=== PATIENT | male | born 1985 | race Caucasian/White ===

== ENCOUNTER 2021-06-21 17:27 | Emergency (ER) | payer OTHER ==
[~2021-06-21] VITALS: Ht 182.9 cm; Wt 93.4 kg
[2021-06-21 17:35] VITALS: BP 117/71
[2021-06-21] MEDS ORDERED: ENOXAPARIN ** NOTE DOSE ** SYRINGE SQ ONE (18:30)
--- NOTE | 2021-06-21 18:30 | PHYS DOC ---
Past History Past Surgical History: No Surgical History Alcohol Use: Occasionally General Adult EDM: Chief Complaint: LOWEREXTREMITY INJURY HPI: HPI: ".. I had patrice come down hard on this Lt.. Calf on Thursday and will swollen up now I am getting a loose discoloration actually it feels better..." Patient is a 35 year old male who presents with above hx and complaints of crush injury to Rt. calf during a foot ball game on Thu. Area is less tender., but area of contusion larger and more discolored. Pt. normally healthy. Up-to-date with vaccinations. Normally follow-up [place]. No recent overseas assignments. No specific ill contacts. No history of depression. Right leg is very ecchymotic and swollen as compared to left. Distal pulses are equal. Capillary refill appears to be equal. No history of coagulopathy with him or family members. Review of Systems: Review of Systems: Constitutional: Denies fever or chills Eyes: Denies change in visual acuity HENT: Denies nasal congestion or sore throat Respiratory: Denies cough or shortness of breath Cardiovascular: Denies chest pain or edema GI: Denies abdominal pain, nausea, vomiting, bloody stools or diarrhea : Denies dysuria Musculoskeletal: Complains of contusion injury right calf on Thursday during a football game Integument: Denies rash Neurologic: Denies headache, focal weakness or sensory changes Endocrine: Denies polyuria or polydipsia Lymphatic: Denies swollen glands Psychiatric: Denies depression or anxiety Family History: Family History: Noncontributory to presentation. Current Medications: Current Meds: See nursing for home meds Allergies: Allergies: Allergies Coded Allergies Type Severity Reaction Last Updated Verified No Known Drug Allergies 06/21/21 No Physical Exam: PE: Constitutional: Well developed, well nourished, no acute distress, non-toxic appearance. [] HENT: Normocephalic, atraumatic, bilateral external ears normal, oropharynx moist, no oral exudates, nose normal. [] Eyes: PERRLA, EOMI, conjunctiva normal, no discharge. [] Neck: Normal range of motion, no tenderness, supple, no stridor. [] Cardiovascular:Heart rate regular rhythm, no murmur [] Lungs & Thorax: Bilateral breath sounds clear to auscultation [] Abdomen: Bowel sounds normal, soft, no tenderness, no masses, no pulsatile masses. [] Skin: Warm, dry, no erythema, no rash. [] Right calf ecchymosis Back: No tenderness, no CVA tenderness. [] Extremities: Right calf tenderness, no cyanosis, no clubbing, ROM intact, right calf edema. [] Neurologic: Alert and oriented X 3, normal motor function, normal sensory function, no focal deficits noted. [] DTRs +2 patella and ankle Achilles. No distal sensation loss Psychologic: Affect normal, judgement normal, mood normal. [] Current Patient Data: Vital Signs: Vital Signs Date Time Temp Pulse Resp B/P (MAP) Pulse Ox O2 Delivery O2 Flow Rate FiO2 06/21/21 17:35 98.2 74 20 117/71 (86) 97 Room Air EKG: EKG: [] Radiology/Procedures: Radiology/Procedures: [address] [address] IMAGING REPORT Signed PATIENT: CHRIS WEST ACCOUNT: [id number] : 1985 LOCATION: ER AGE: 35 SEX: M EXAM STATUS: REG ER ORD. PHYSICIAN: ALPHONSE RUBIO MD REASON: Foot ball injury wed PROCEDURE: TIBIA FIBULA RIGHT EXAMINATION: Right tibia and fibula radiograph. VIEWS: 2 COMPARISON: None INDICATION:35 years, Male, football injury. FINDINGS: No acute fracture, dislocation or subluxation. Soft tissues are unremarkable. IMPRESSION: No acute osseous process. Electronically signed by: Iesha Slade DO (06/21/2021 6:42 PM) [facility] DICTATED AND SIGNED BY: IESHA SLADE DO DATE: 06/21/21 184 CC: ALPHONSE RUBIO MD; PCP,NO ~MTH0 [address] [address] IMAGING REPORT Signed PATIENT: CHRIS WEST ACCOUNT: [id number] : 1985 LOCATION: ER AGE: 35 SEX: M EXAM STATUS: REG ER ORD. PHYSICIAN: ALPHONSE RUBIO MD REASON: crush injury- eval dvt PROCEDURE: DUPLEX LOWER EX ARTERIAL RIGHT Right lower extremity arterial duplex Doppler ultrasound HISTORY: Right leg pain. Crush injury. TECHNIQUE: Grayscale and duplex Doppler sonography was utilized FINDINGS: There is no plaquing, thrombus, significant stenosis or occlusion, pseudoaneurysm or obvious dissection of the right leg arteries document. There are normal triphasic arterial waveforms and normal velocities throughout the right leg arteries. Individual flow velocities are described below. Common femoral artery: 85 cm/s Profunda femoral artery: 70 cm/s Superficial femoral artery: 89 cm/s upper thigh, 101 cm/s mid thigh, 107 cm/s lower thigh Popliteal artery: 65 cm/s Posterior tibial artery: 56 cm/s upper calf, 135 cm/s lower calf, no discrete stenosis at this elevated velocity at the lower calf evident could be due to some vascular tortuosity Anterior tibial artery: 34 cm/s Peroneal artery: 27 cm/s Dorsalis pedis artery: 114 cm/s, no discrete stenosis at this elevated velocity at the foot evident could be due to some vascular tortuosity Impression: No thrombus, hemodynamically significant stenosis or occlusion of the right leg arteries. There are mild elevated flow velocities of segments of the posterior tibial artery at the lower calf and dorsalis pedis artery at the foot however there is no visible stenosis at these segments, it is probable that these velocities are elevated due to some vascular tortuosity in these regions, focal stenoses are considered less likely. See above. Electronically signed by: Damaris Ken MD (06/21/2021 8:50 PM) [facility] DICTATED AND SIGNED BY: DAMARIS KEN MD DATE: 06/21/212044 CC: ALPHONSE RUBIO MD; PCP,NO ~MTH0 0 [place] [address] IMAGING REPORT Signed PATIENT: CHRIS WEST ACCOUNT: [id number] : 1985 LOCATION: ER AGE: 35 SEX: M EXAM STATUS: REG ER ORD. PHYSICIAN: ALPHONSE RUBIO MD REASON: crush injury- eval dvt PROCEDURE: VENOUS LOWER EXTREMITY RIGHT EXAM: Right lower extremity venous Doppler. HISTORY: Right lower extremity pain/swelling. COMPARISON: None. FINDINGS: Grayscale and Doppler analysis of the right lower extremity deep venou s system was performed with graded compression and augmentation. The common femoral, greater saphenous, superficial femoral, popliteal and calf veins were assessed. There is no evidence of deep venous thrombosis. IMPRESSION: 1. No evidence of deep venous thrombosis. Electronically signed by: Isiah Knutson MD (06/21/2021 8:44 PM) [facility] DICTATED AND SIGNED BY: WEN KNUTSON MD DATE: 06/21/212042 CC: ALPHONSE RUBIO MD; PCP,ANDRE ~MTH0 0 ][place] [address] IMAGING REPORT Signed EXAM: 3 views of the left foot DATE: 06/21/2021 7:43 PM DICTATED AND SIGNED BY: IESHA SLADE DO DATE: 06/21/212021 CC: ALPHONSE RUBIO MD; BURTON DELGADO MD ~MTH0 0 Heart Score: C/O Chest Pain: N/A Risk Factors: Risk Factors: DM, Current or recent (<one month) smoker, HTN, HLP, family history of CAD, obesity. Risk Scores: Score 0 - 3: 2.5% MACE over next 6 weeks - Discharge Home Score 4 - 6: 20.3% MACE over next 6 weeks - Admit for Clinical Observation Score 7 - 10: 72.7% MACE over next 6 weeks - Early Invasive Strategies Course & Med Decision Making: Course & Med Decision Making Pertinent Labs and Imaging studies reviewed. (See chart for details) Patient to start warm heat compresses 4 times a day as needed. Tylenol and ibuprofen for pain. . Follow-up primary care. If ultrasound is unavailable in [facility] patient to follow-up outpatient in the morning for Doppler and ultrasound of her right calf. Will pretreat with Lovenox. Patient Tylenol ibuprofen needed for pain. Impression: 1. Crush injury right calf [] Dragon Disclaimer: Inocencia Disclaimer: This electronic medical record was generated, in whole or in part, using a voice recognition dictation system. Departure Departure: Referrals: PCP,ANDRE (PCP) In[employer]encia Disclaimer This chart was dictated in whole or in part using Voice Recognition software in a busy, high-work load, and often noisy Emergency Department environment. It may contain unintended and wholly unrecognized errors or omissions. ALPHONSE RUBIO MD Jun 21, 2021 18:30
--- NOTE | 2021-06-21 18:45 | RAD ---
EXAMINATION: Right tibia and fibula radiograph. VIEWS: 2 COMPARISON: None INDICATION:35 years, Male, football injury. FINDINGS: No acute fracture, dislocation or subluxation. Soft tissues are unremarkable. IMPRESSION: No acute osseous process. Electronically signed by: Russell Slade DO (06/21/2021 6:42 PM) [facility]
--- NOTE | 2021-06-21 20:46 | RAD ---
EXAM: Right lower extremity venous Doppler. HISTORY: Right lower extremity pain/swelling. COMPARISON: None. FINDINGS: Grayscale and Doppler analysis of the right lower extremity deep venous system was performe d with graded compression and augmentation. The common femoral, greater saphenous, superficial femora l, popliteal and calf veins were assessed. There is no evidence of deep venous thrombosis. IMPRESSION: 1. No evidence of deep venous thrombosis. Electronically signed by: Isiah Knutson MD (06/21/2021 8:44 PM) [facility]
--- NOTE | 2021-06-21 20:52 | RAD ---
Right lower extremity arterial duplex Doppler ultrasound HISTORY: Right leg pain. Crush injury. TECHNIQUE: Grayscale and duplex Doppler sonography was utilized FINDINGS: There is no plaquing, thrombus, significant stenosis or occlusion, pseudoaneurysm or obviou s dissection of the right leg arteries document. There are normal triphasic arterial waveforms and no rmal velocities throughout the right leg arteries. Individual flow velocities are described below. Common femoral artery: 85 cm/s Profunda femoral artery: 70 cm/s Superficial femoral artery: 89 cm/s upper thigh, 101 cm/s mid thigh, 107 cm/s lower thigh Popliteal artery: 65 cm/s Posterior tibial artery: 56 cm/s upper calf, 135 cm/s lower calf, no discrete stenosis at this elevat ed velocity at the lower calf evident could be due to some vascular tortuosity Anterior tibial artery: 34 cm/s Peroneal artery: 27 cm/s Dorsalis pedis artery: 114 cm/s, no discrete stenosis at this elevated velocity at the foot evident c ould be due to some vascular tortuosity Impression: No thrombus, hemodynamically significant stenosis or occlusion of the right leg arteries. There are mild elevated flow velocities of segments of the posterior tibial artery at the lower calf and dorsalis pedis artery at the foot however there is no visible stenosis at these segments, it is probable that these velocities are elevated due to some vascular tortuosity in these regions, focal s tenoses are considered less likely. See above. Electronically signed by: Larry Ken MD (06/21/2021 8:50 PM) [facility]
== END 2021-06-21 21:05 | disposition home or self-care (01) ==
LOC: ER 17:27
DX: S87.81XA Crushing injury of right lower leg, initial encounter (principal); X58.XXXA Exposure to other specified factors, initial encounter; Y93.89 Activity, other specified; Y92.89 Other specified places as the place of occurrence of the external cause; Y99.8 Other external cause status
CPT/HCPCS: 73590; 93926; 93971; 96372; 99284; J1650

== ENCOUNTER → 2021-11-19 | Day surgery (SDC) | payer OTHER ==
[~2021-11-19] MED LIST: ACETAMINOPHEN 500 MG TABLET PO ONE; EPINEPHrine 30 MG/30 ML VIAL ONE; GELATIN SPONGE SIZE 100. TP ONE; GELATIN SPONGE SIZE 12-7MM SPONGE. ONE; GLYCOPYRROLATE 1 MG/5 ML VIAL. ONE; IPRATRPIUM/ALBUTEROL 0.5/2.5MG 3 ML NEBU. NEB PRN; IV RINGERS SOLUTION,LACTATED 1,000 ML IV SCH; KETOROLAC 30 MG/ML VIAL. ONE; LIDOCAINE 1%/EPI 1:100,000 20 ML VIAL. IJ ONE; LIDOCAINE 1%/EPI 1:100,000 20 ML VIAL. ONE; LIDOCAINE 2% PF 5 ML VIAL. ONE; MIDAZOLAM HCL PF 2 MG/2 ML VIAL. IV ONE; MIDAZOLAM HCL PF 2 MG/2 ML VIAL. ONE; ONDANSETRON PF 4 MG/2 ML VIAL. IV PRN; ONDANSETRON PF 4 MG/2 ML VIAL. ONE; OXYMETAZOLINE 0.05% NASAL SPRAY 30ML BOTTLE. NS ONE; PROPOFOL 10,000 MCG/ML (20ML) VIAL IV ONE; ROCURONIUM 50 MG/5 ML VIAL. ONE; SEVOFLURANE 61 TO 120 MINUTES. IH ONE; SUCCINYLCHOLINE 200 MG/10 ML VIAL. ONE
[2021-11-19 10:57] VITALS: BP 138/78
--- NOTE | 2021-11-19 14:39 | OP ---
DATE OF SURGERY: 11/19/2021 PREOPERATIVE DIAGNOSIS: Nasal obstruction secondary to deviated nasal septum and turbinate hypertrophy. POSTOPERATIVE DIAGNOSIS: Nasal obstruction secondary to deviated nasal septum and turbinate hypertrophy. PROCEDURE PERFORMED: Septoplasty with radiofrequency reduction of the right inferior turbinate. INDICATIONS FOR THE PROCEDURE: Nasal obstruction. ANESTHESIA: General anesthetic. ESTIMATED BLOOD LOSS: Less than 15 mL. DESCRIPTION OF PROCEDURE: The patient was brought to the operating room and placed on the operating room table in supine position. He was given a general anesthetic. When his airway was safe and vital signs were stable, the table was rotated 90 degrees. His nose had been previously decongested with Afrin sprayed in the presurgical area. Anteriorly, there was contraction of the nasal mucosa, which revealed the objective of his septal surgery, a distinct septal spur, which impacted the left inferior nasal turbinate. In the right side, the inferior turbinate was enlarged. The nose was decongested. The face was prepped and draped. The septum was infiltrated with 1% lidocaine with epinephrine. A curvilinear incision was made at the mucocutaneous border on the left side of the nose. Dissection was carried down beneath the mucoperichondrium. The septal spur was isolated and then sequentially septal cartilage and bone as needed to correct the septal deviation was removed. Portions of the cartilage were scored to reposition them. The premaxillary crest was distorted and it was removed with a small osteotome. Irrigation of the surgical site revealed some superior portions of the perpendicular plate of the ethmoid, which were twisted and were part of the deviation. Those were sequentially and carefully removed using a Blakesley forceps. Reexamination revealed that the septal structure was in the midline and the spur had been removed and the impression on the inferior left nasal turbinate had been relieved. Attention was then given to the right inferior turbinate, which was compensatedly enlarged. It was outfractured with a large speculum and then injected with 2 mL of normal saline after which a radiofrequency wand was placed within the turbinate soft tissue and radiofrequency energy applied. This was applied until there was contraction of the turbinate and a change in the consistency of the tissue. The nose was then irrigated. The nasopharynx was suctioned free of blood. No active bleeding was occurring. The incision site was then closed using 4-0 chromic suture. There was a quilting suture applied to reapproximate the elevated mucous membrane. When the incision site was closed, the nose was then irrigated. No active bleeding was occurring. The procedure was then completed, Gelfoam was placed in the nose on both sides. A sterile dressing applied and the patient was recovered from his anesthesia and taken to the recovery room in stable condition. RACHEL DR: Real TID: [id number]
== END | disposition home or self-care (01) ==
LOC: SURG 07:28
PROVIDERS: ATTEND Otolaryngology
DX: J34.2 Deviated nasal septum (principal); J34.89 Other specified disorders of nose and nasal sinuses; Z72.89 Other problems related to lifestyle
CPT/HCPCS: 30520; 30801; A4657; J0330; J0696; J1885; J2001; J2250; J2405; J2704; J3010; J3490; J7120; J0171